=== PATIENT | female | born 1965 | race African-American/Black ===

== ENCOUNTER 2020-12-09 19:27 | Inpatient (IN) | payer BC ==
[~2020-12-09] VITALS: Ht 165.1 cm; Wt 86.2 kg
[~2020-12-09 19:27] MED LIST: ASPI-1497 MT; ATOR20TA65 PO; COR3 MT
[2020-12-09] MEDS ORDERED: ACETAMINOPHEN 325MG TABLET PO NR (21:00)
[2020-12-09 21:01] LABS: BASOPHILS % 0.5 % (0.0-2.0); HEMATOCRIT. 40.6 % (36.0-48.0); HEMOGLOBIN. 13.9 g/dL (12.0-16.0); LYMPHOCYTES % 16.6 % (20.0-50.0); MEAN CORPUSCULAR HEMOGLOBIN 28.5 pg (28.0-32.0); MEAN PLATELET VOLUME 9.9 fl (7.4-10.4); MONOCYTES % 8.8 % (2.0-8.0); NEUTROPHILS % 74.1 % (40.0-76.0); PLATELET 128 x1000/uL (130-400); RED CELL DISTRIBUTION WIDTH 13.5 % (11.6-14.6)
[2020-12-09 21:06] LABS: CHLORIDE 95 mEq/L (98-107)
[2020-12-09] MEDS ORDERED: DEXAMETHASONE 10 MG/ML VIAL IV ONE (23:00)
[2020-12-09] MEDS ORDERED: DOXYCYCLINE HYCLATE 100 MG/VIAL IV ONE (23:00)
[2020-12-09] MEDS ORDERED: CEFTRIAXONE 1 G PREMIX 50 ML IV ONE (23:00)
[2020-12-09] MEDS ORDERED: DOXYCYCLINE 100MG in DEXTROSE 5% WATER 100ML IV NR (23:15)
[2020-12-10 03:06] VITALS: BP 137/88
[2020-12-10 03:32] VITALS: BP 137/88
[2020-12-10] MEDS ORDERED: ACETAMINOPHEN 325MG TABLET PO PRN (05:45)
[2020-12-10] MEDS ORDERED: DEXAMETHASONE 4MG/ML 1ML VIAL IV SCH ×2 (06:00→08:00)
[2020-12-10] MEDS ORDERED: DOCUSATE SODIUM 100MG CAPSULE PO PRN (07:30)
[2020-12-10] MEDS ORDERED: IPRATROPIUM/ALBUTEROL 0.5-3(2.5)MG/3ML NEB HHN PRN (07:30)
[2020-12-10] MEDS ORDERED: ENOXAPARIN 40MG/0.4ML SYR SUBCUT SCH (07:30)
[2020-12-10] MEDS ORDERED: CEFTRIAXONE 1 G PREMIX 50 ML IV SCH (09:00)
[2020-12-10] MEDS ORDERED: CEFTRIAXONE SODIUM 1 G/VIAL IM SCH (09:00)
[2020-12-10] MEDS: DEXAMETHASONE 4MG/ML 1ML VIAL IV SCH (09:50)
[2020-12-10] MEDS: ENOXAPARIN 30MG/0.3ML SYR SUBCUT SCH ×2 (09:50→20:34)
[2020-12-10] MEDS: CARVEDILOL 3.125 MG TABLET PO SCH ×2 (09:51→20:34)
[2020-12-10] MEDS: ATORVASTATIN CALCIUM 20MG TABLET PO SCH ×2 (09:51→09:57)
[2020-12-10] MEDS: ASPIRIN 81MG EC TABLET PO SCH (09:51)
[2020-12-10] MEDS: FAMOTIDINE 20MG TABLET PO SCH ×2 (09:52→20:34)
[2020-12-10] MEDS: AZITHROMYCIN 500 MG in DEXT 5% WATER 250 ML IV SCH (09:52)
[2020-12-10] MEDS: GUAIFENESIN 200MG/10ML SUGAR FREE UDC PO PRN (09:53)
[2020-12-10 10:59] LABS: BG BASE EXCESS 5.1 mmol/L (-2.0-2.0); BG CARBOXYHEMOGLOBIN 0.1 % (0.5-1.5); BG DEOXYHEMOGLOBIN 14.7 % (0.0-5.0); BG FRACTION INSPIRED OXYGEN 21; BG HCO3 ACT 29.3 mmol/L (22.0-26.0); BG METHEMOGLOBIN 0.3 % (0.0-1.5); BG OXYGEN SATURATION 85.2 % (92.0-98.5); BG OXYHEMOGLOBIN 84.9 % (94.0-97.0); BG PCO2 41.4 mmHg (35.0-45.0); BG PH 7.468 (7.350-7.450); BG PO2 47.1 mmHg (75.0-100.0); BG SAMPLE SITE LEFT RADIAL; BG TOTAL HEMOGLOBIN 14.4 g/dL (12.0-18.0); BG VENT MODE ROOM AIR
[2020-12-10 12:00] VITALS: BP 114/69
[2020-12-10 20:00] VITALS: BP 113/62
[2020-12-10] MEDS: CEFTRIAXONE 1,000 MG in DEXTROSE 5% WATER 50 ML IV SCH (20:34)
[2020-12-10] MEDS ORDERED: ZOLPIDEM TARTRATE 5MG TABLET PO PRN (21:00)
[2020-12-11] VITALS: BP 130/73
[2020-12-11 04:00] VITALS: BP 114/76
[2020-12-11 06:07] LABS: CHLORIDE 96 mEq/L (98-107)
[2020-12-11 06:14] LABS: BASOPHILS % 0.2 % (0.0-2.0); HEMATOCRIT. 38.1 % (36.0-48.0); HEMOGLOBIN. 13.1 g/dL (12.0-16.0); LYMPHOCYTES % 14.5 % (20.0-50.0); MEAN CORPUSCULAR HEMOGLOBIN 28.3 pg (28.0-32.0); MEAN CORPUSCULAR VOLUME 82.4 fL (81.0-99.0); MEAN PLATELET VOLUME 9.8 fl (7.4-10.4); MONOCYTES % 10.7 % (2.0-8.0); NEUTROPHILS % 74.6 % (40.0-76.0); PLATELET 162 x1000/uL (130-400); RED BLOOD CELL COUNT 4.62 mill/uL (4.2-5.4); RED CELL DISTRIBUTION WIDTH 13.2 % (11.6-14.6)
[2020-12-11 08:00] VITALS: BP 112/74
[2020-12-11] MEDS: GUAIFENESIN 200MG/10ML SUGAR FREE UDC PO PRN (09:12)
[2020-12-11] MEDS: ATORVASTATIN CALCIUM 20MG TABLET PO SCH (09:12)
[2020-12-11] MEDS: AZITHROMYCIN 500 MG in DEXT 5% WATER 250 ML IV SCH (09:12)
[2020-12-11] MEDS: ASPIRIN 81MG EC TABLET PO SCH (09:12)
[2020-12-11] MEDS: DEXAMETHASONE 4MG/ML 1ML VIAL IV SCH (09:13)
[2020-12-11] MEDS: CARVEDILOL 3.125 MG TABLET PO SCH ×2 (09:13→22:15)
[2020-12-11] MEDS: FAMOTIDINE 20MG TABLET PO SCH ×2 (09:13→22:15)
[2020-12-11] MEDS: ENOXAPARIN 30MG/0.3ML SYR SUBCUT SCH ×2 (11:19→22:14)
[2020-12-11 12:00] VITALS: BP_SYST 103; BP_SYST 112; BP_DIAS 67; BP_DIAS 74
[2020-12-11 16:00] VITALS: BP 106/68
[2020-12-11 20:00] VITALS: BP 113/71
[2020-12-11] MEDS: CEFTRIAXONE 1,000 MG in DEXTROSE 5% WATER 50 ML IV SCH (22:14)
[2020-12-12] VITALS: BP 114/76
[2020-12-12 04:00] VITALS: BP 111/77
[2020-12-12 08:00] VITALS: BP 115/72
[2020-12-12] MEDS: CARVEDILOL 3.125 MG TABLET PO SCH ×2 (08:25→20:36)
[2020-12-12] MEDS: FAMOTIDINE 20MG TABLET PO SCH ×2 (08:25→20:36)
[2020-12-12] MEDS: ASPIRIN 81MG EC TABLET PO SCH (08:25)
[2020-12-12] MEDS: GUAIFENESIN 200MG/10ML SUGAR FREE UDC PO PRN (08:26)
[2020-12-12] MEDS: ENOXAPARIN 30MG/0.3ML SYR SUBCUT SCH (08:26)
[2020-12-12] MEDS: AZITHROMYCIN 500 MG in DEXT 5% WATER 250 ML IV SCH (08:26)
[2020-12-12] MEDS: DEXAMETHASONE 4MG/ML 1ML VIAL IV SCH (08:26)
[2020-12-12] MEDS: ATORVASTATIN CALCIUM 20MG TABLET PO SCH (08:27)
[2020-12-12 09:02] LABS: HEMATOCRIT 38.4 % (36.0-48.0); HEMOGLOBIN 13.1 g/dL (12.0-16.0); MEAN CORPUSCULAR HEMOGLOBIN 28.5 pg (28.0-32.0); MEAN CORPUSCULAR VOLUME 83.4 fL (81.0-99.0); PLATELET 213 x1000/uL (130-400); RED CELL DISTRIBUTION WIDTH 13.4 % (11.6-14.6)
[2020-12-12 12:00] VITALS: BP 132/82
[2020-12-12 16:00] VITALS: BP 116/78
[2020-12-12 20:00] VITALS: BP 119/80
[2020-12-12] MEDS: CEFTRIAXONE 1,000 MG in DEXTROSE 5% WATER 50 ML IV SCH (20:36)
[2020-12-13] VITALS: BP 120/74
[2020-12-13] MEDS: ACETAMINOPHEN 325MG TABLET PO PRN ×3 (03:37→09:44)
[2020-12-13 04:00] VITALS: BP 111/78
[2020-12-13 08:00] VITALS: BP 115/85
[2020-12-13] MEDS ORDERED: ENOXAPARIN 40MG/0.4ML SYR SUBCUT SCH (09:00)
[2020-12-13] MEDS: ASPIRIN 81MG EC TABLET PO SCH (09:43)
[2020-12-13] MEDS: FAMOTIDINE 20MG TABLET PO SCH (09:43)
[2020-12-13] MEDS: GUAIFENESIN 200MG/10ML SUGAR FREE UDC PO PRN (09:43)
[2020-12-13] MEDS: CARVEDILOL 3.125 MG TABLET PO SCH (09:44)
[2020-12-13] MEDS: DEXAMETHASONE 4MG/ML 1ML VIAL IV SCH (09:45)
[2020-12-13] MEDS: AZITHROMYCIN 500 MG in DEXT 5% WATER 250 ML IV SCH (09:45)
[2020-12-13] MEDS: ATORVASTATIN CALCIUM 20MG TABLET PO SCH (09:46)
[2020-12-13 11:09] VITALS: BP 115/85
[2020-12-13 12:00] VITALS: BP 121/79
== END 2020-12-13 13:05 | disposition home or self-care (01) | DRG 871 ==
LOC: ER 19:27 → ENRESERV 23:27 → 7WST 12-10 02:47
PROVIDERS: ADMIT Internal Medicine; ATTEND Internal Medicine
DX: A41.89 Other specified sepsis (principal); J96.01 Acute respiratory failure with hypoxia; J12.82 Pneumonia due to coronavirus disease 2019; U07.1 COVID-19; J15.9 Unspecified bacterial pneumonia; E44.0 Moderate protein-calorie malnutrition; E87.1 Hypo-osmolality and hyponatremia; I10 Essential (primary) hypertension; E87.8 Other disorders of electrolyte and fluid balance, not elsewhere classified; E66.9 Obesity, unspecified; Z79.899 Other long term (current) drug therapy; Z79.82 Long term (current) use of aspirin; Z68.31 Body mass index [BMI] 31.0-31.9, adult
CPT/HCPCS: 36415; 36600; 71045; 80053; 82375; 82728; 82805; 83615; 84145; 85025; 85027; 85379; 86140; 87426; 93005; 99291; J0456; J0696; J1100; J1650; J3490; J7040; J7060